=== PATIENT | male | born 1960 | race Caucasian/White ===

== ENCOUNTER 2017-01-29 22:25 | Emergency (ER) | payer BC ==
[~2017-01-29] VITALS: Ht 172.7 cm; Wt 81.6 kg
[~2017-01-29 22:25] MED LIST: HYDR12.55 PO
[2017-01-29 22:40] VITALS: BP 141/83
[2017-01-29] MEDS ORDERED: SODIUM BICARBONATE 5 ML VIAL TP ONE (23:00)
[2017-01-29] MEDS ORDERED: LIDOCAINE 1%-EPI 1:100,000 20 ML VIAL TP ONE (23:00)
[2017-01-29] MEDS ORDERED: CEPHALEXIN MONOHYDRATE 500 MG CAPSULE PO ONE ×2 (23:00→23:32)
[2017-01-29] MEDS ORDERED: TDAP [DIPH/PERTUSSIS/TET] 0.5 ML VIAL IM ONE ×2 (23:00→23:32)
[2017-01-29] MEDS ORDERED: LIDOCAINE 1% INJ 50 ML MDV IJ ONE (23:02)
[2017-01-29] MEDS ORDERED: LIDOCAINE 1%-EPI 1:100,000 50 ML VIAL IJ ONE (23:30)
== END 2017-01-30 00:20 | disposition home or self-care (01) ==
LOC: ER 22:27
DX: S81.012A Laceration without foreign body, left knee, initial encounter (principal); S80.02XA Contusion of left knee, initial encounter; I10 Essential (primary) hypertension; X58.XXXA Exposure to other specified factors, initial encounter; Y93.89 Activity, other specified; Y92.89 Other specified places as the place of occurrence of the external cause; Y99.8 Other external cause status
CPT/HCPCS: 12002; 73564; 90471; 90715; 99284; A4217; A4606; A6402; J3490 ×2; Z7610

== ENCOUNTER 2017-05-17 01:55 | Emergency (ER) | payer BC ==
--- NOTE | 2017-05-17 02:00 | NUR ---
PT DECIDES TO LEAVE WHEN INFORMED HE WILL NEED TO BE TRANSFERED TO ANOTHER FACILITY.
== END 2017-05-17 02:24 | disposition left against medical advice (07) ==
LOC: ER 02:04
DX: N48.30 Priapism, unspecified (principal); Z53.21 Procedure and treatment not carried out due to patient leaving prior to being seen by health care provider

== ENCOUNTER 2024-11-14 19:35 | Emergency (ER) | payer MEDICARE ==
[~2024-11-14] VITALS: Ht 177.8 cm; Wt 83.9 kg
[2024-11-14] MEDS: ONDANSETRON 4 MG TAB.RAPDIS PO ONE (20:52)
[2024-11-14] MEDS ORDERED: IBUP-1490 PO (21:41)
[2024-11-14 22:14] VITALS: BP 134/78; TEMP 98.3; O2SAT 98
[2024-11-14] MEDS ORDERED: IBUPROFEN 600 MG TABLET PO ONE (22:30)
[2024-11-14] MEDS ORDERED: ACETAMINOPHEN ES 500 MG TABLET PO ONE (22:30)
== END 2024-11-14 22:15 | disposition home or self-care (01) ==
LOC: ER 19:38
DX: R51.9 Headache, unspecified (principal); R11.0 Nausea; I10 Essential (primary) hypertension; F10.129 Alcohol abuse with intoxication, unspecified; Z79.899 Other long term (current) drug therapy; V43.52XA Car driver injured in collision with other type car in traffic accident, initial encounter; Y93.89 Activity, other specified; Y92.410 Unspecified street and highway as the place of occurrence of the external cause; Y99.8 Other external cause status; Y90.9 Presence of alcohol in blood, level not specified
CPT/HCPCS: 70450-TC; 72125-TC